=== PATIENT | male | born 1980 | race Caucasian/White ===

== ENCOUNTER 2016-12-13 10:25 | Emergency (ER) | payer SELFPAY ==
[~2016-12-13] VITALS: Ht 177.8 cm; Wt 127.0 kg
[~2016-12-13 10:25] MED LIST: PRIL40CA PO; ZOFR4TAB3 SL
[2016-12-13 10:37] VITALS: BP 140/86; PULSE 60; RESP 12; TEMP 98.1; O2SAT 96
--- NOTE | 2016-12-13 11:50 | PD ---
HPI Chief Complaint: Fall Time Seen by Provider: 11:30 Travel History International Travel<30 days: No Contact w/Intl Traveler<30days: No Traveled to known affect area: No History of Present Illness HPI Patient is a 36-year-old male presenting to the emergency department for evaluation of visual changes, right shoulder pain, right elbow pain, right knee pain, shortness of breath. Patient fell approximately 8 feet off of his roof at 6:30 this morning, he was on his roof checking for leak. He states that his vision is off, he states things look white. He felt something in his knee pop and feels as if the patella is displaced. Patient was ambulatory emergency department. He reports his pain as a 7/10. He denies hitting his head but has left facial pain. He denies any significant past medical history. PFSH Past Medical History Medical History: Denies Significant Hx High Cholesterol: No Diminished Hearing: No Endocrine: No Genitourinary: No Immune Disorder: No Musculoskeletal: No Neurologic: No Psychiatric: No Reproductive: No Respiratory: No Immunizations Current: Yes Tetanus Vaccination: < 5 Years Influenza Vaccination: No Past Surgical History Surgical History: No Previous Surgery Other Surgery: No Family History Family History: Negative Social History Alcohol Use: No Tobacco Use: No Substance Use: No Allergies-Medications (Allergen,Severity, Reaction): Coded Allergies: Canned Fish (Verified Allergy, Severe, severe swelling and rash, 12/13/16) Penicillin (Verified Allergy, Severe, swelling, 12/13/16) Reported Meds & Prescriptions Reported Meds & Active Scripts Active Tramadol (Tramadol HCl) 50 Mg Tab 50 Mg PO Q6H PRN Flexeril (Cyclobenzaprine HCl) 10 Mg Tab 10 Mg PO TID PRN 10 Days Ibuprofen 800 Mg Tab 800 Mg PO Q8H PRN 10 Days Review of Systems Except as stated in HPI: all other systems reviewed are Neg Eyes: Positive: Visual changes HENT: Positive: Headaches, Lightheadedness Cardiovascular: No: Chest Pain or Discomfort Respiratory: Positive: Shortness of Breath, Pleuritic Pain Gastrointestinal: No: Nausea, Abdominal Pain Musculoskeletal: Positive: Myalgias, Arthralgias, Limited ROM, Pain Neurologic: Positive: Dizziness, Headache, No: Focal Abnormalities, Change in Mentation, Sensory Disturbance Physical Exam Narrative GENERAL: Developed, well-nourished, alert male. Resting comfortably in no acute distress. SKIN: Warm and dry. HEAD: Atraumatic. Normocephalic. EYES: Pupils equal and round. No scleral icterus. No injection or drainage. Extraocular movements are intact. ENT: No nasal bleeding or discharge. Mucous membranes pink and moist. NECK: Trachea midline. No JVD. CARDIOVASCULAR: Regular rate and rhythm. No murmur appreciated. RESPIRATORY: No accessory muscle use. Clear to auscultation. Breath sounds equal bilaterally, diminished breath sounds secondary to poor inspiratory effort. GASTROINTESTINAL: Abdomen soft, non-tender, nondistended. Hepatic and splenic margins not palpable. MUSCULOSKELETAL: No obvious deformities. No clubbing. No cyanosis. Mild edema noted to right knee anteriorly. Decreased range of motion with flexion and extension. NEUROLOGICAL: Awake and alert. No obvious cranial nerve deficits. Motor grossly within normal limits. Normal speech. PSYCHIATRIC: Appropriate mood and affect; insight and judgment normal. Data Data Last Documented VS Vital Signs Date Time Temp Pulse Resp B/P Pulse Ox O2 Delivery O2 Flow Rate FiO2 12/13/16 10:37 98.1 60 12 140/[address] Brain W/O Iv Contrast(Rout) (12/13/16 ) Ct Cerv Spine W/O Contrast (12/13/16 ) Ct Thorax/ Chest W Iv Contrast (12/13/16 ) Ct Abd/Pel W Iv Contrast(Rout) (12/13/16 ) Ct Thor Spine W/O Contrast (12/13/16 ) Ct Lumb Spine W/O Contrast (12/13/16 ) Knee, Complete (4vws) (12/13/16 ) Elbow, Complete (4 Vws) (12/13/16 ) Complete Blood Count With Diff (12/13/16 11:21) Basic Metabolic Panel (Bmp) (12/13/16 11:21) Act Partial Throm Time (Ptt) (12/13/16 11:21) Prothrombin Time / Inr (Pt) (12/13/16 11:21) Iv Access Insert/Monitor (12/13/16 11:21) Shoulder, Complete (>2vws) (12/13/16 ) Iohexol 350 Inj (Omnipaque 350 Inj) (12/13/16 12:53) Crutches (12/13/16 13:34) Support Splint (12/13/16 13:34) Mandatory Outpatient Referral (12/13/16 13:56) Mandatory Outpatient Referral (12/13/16 13:56) Labs Laboratory Tests Test 12/13/16 11:30 White Blood Count 8.4 TH/MM3 Red Blood Count 4.58 MIL/MM3 Hemoglobin 14.2 GM/DL Hematocrit 41.5 % Mean Corpuscular Volume 90.6 FL Mean Corpuscular Hemoglobin 31.0 PG Mean Corpuscular Hemoglobin 34.2 % Concent Red Cell Distribution Width 11.8 % Platelet Count 247 TH/MM3 Mean Platelet Volume 7.6 FL Neutrophils (%) (Auto) 63.8 % Lymphocytes (%) (Auto) 24.0 % Monocytes (%) (Auto) 10.2 % Eosinophils (%) (Auto) 1.4 % Basophils (%) (Auto) 0.6 % Neutrophils # (Auto) 5.3 TH/MM3 Lymphocytes # (Auto) 2.0 TH/MM3 Monocytes # (Auto) 0.9 TH/MM3 Eosinophils # (Auto) 0.1 TH/MM3 Basophils # (Auto) 0.1 TH/MM3 CBC Comment DIFF FINAL Differential Comment Prothrombin Time 11.0 SEC Prothromb Time International 1.0 RATIO Ratio Activated Partial 25.5 SEC Thromboplast Time Sodium Level 143 MEQ/L Potassium Level 4.1 MEQ/L Chloride Level 109 MEQ/L Carbon Dioxide Level 27.1 MEQ/L Anion Gap 7 MEQ/L Blood Urea Nitrogen 11 MG/DL Creatinine 0.80 MG/DL Estimat Glomerular Filtration 108 ML/MIN Rate Random Glucose 74 MG/DL Calcium Level 8.8 MG/DL MDM Medical Decision Making Medical Screen Exam Complete: Yes Emergency Medical Condition: Yes Interpretation(s) Last Impressions Thoracic Spine CT 12/13/16 0000 Signed Impressions: Service Date/Time: Tuesday, December 13, 2016 12:22 - CONCLUSION: 1. No acute bony fracture. 2. Primary bony degenerative changes, disc degeneration and disc space narrowing throughout the thoracic spine. 3. Tiny left paracentral disc osteophyte complex at T8-9. Santosh Rose MD Shoulder X-Ray 12/13/16 0000 Signed Impressions: Service Date/Time: Tuesday, December 13, 2016 11:50 - CONCLUSION: Unremarkable exam. Satnosh Rose MD Lumbar Spine CT 12/13/16 0000 Signed Impressions: Service Date/Time: Tuesday, December 13, 2016 12:22 - CONCLUSION: 1. No acute bony fracture. 2. Mild primary degenerative changes. 3. Bilateral facet arthritis at L5-S1. Santosh Rose MD Knee X-Ray 12/13/16 0000 Signed Impressions: Service Date/Time: Tuesday, December 13, 2016 11:52 - CONCLUSION: Negative for fracture or dislocation. Follow up in 7-10 days is suggested if symptoms persist.. Jaret Waldrop MD FACR Head CT 12/13/16 0000 Signed Impressions: Service Date/Time: Tuesday, December 13, 2016 12:12 - CONCLUSION: Negative for an acute process. Jaret Waldrop MD FACR Elbow X-Ray 12/13/16 0000 Signed Impressions: Service Date/Time: Tuesday, December 13, 2016 11:46 - CONCLUSION: Normal examination for a patient of this age. Santosh Rose MD Chest CT 12/13/16 0000 Signed Impressions: Service Date/Time: Tuesday, December 13, 2016 12:22 - CONCLUSION: Negative for an acute process. Jaret Waldrop MD FACR Cervical Spine CT 12/13/16 0000 Signed Impressions: Service Date/Time: Tuesday, December 13, 2016 12:12 - CONCLUSION: Negative for acute traumatic injury. Jaret Waldrop MD FACR Abdomen/Pelvis CT 12/13/16 0000 Signed Impressions: Service Date/Time: Tuesday, December 13, 2016 12:22 - CONCLUSION: Unremarkable and stable CT scan of the abdomen and pelvis compared to the prior exam. Santosh Rose MD Vital Signs Date Time Temp Pulse Resp B/P Pulse Ox O2 Delivery O2 Flow Rate FiO2 12/13/16 10:37 98.1 60 12 140/86 96 Differential Diagnosis Hemorrhage versus fracture versus contusion versus sprain versus strain versus pneumothorax versus hemothorax versus other Narrative Course Patient is a 36-year-old male with no significant past medical history per his report. Presenting to the emergency department after a fall from approximately 8 feet this morning. He is neurologically intact at this time. He is reporting visual changes, but denies any head injury. Patient's vital signs are stable. Imaging, labs ordered and pending. IV access initiated. X-ray of the right knee is negative for acute fracture, follow-up in 7-10 days is recommended if symptoms persist. X-ray of the right elbow was negative for acute fracture. CBC, chemistry, coags reviewed and are unremarkable. X-ray of the right shoulder is negative for acute fracture or dislocation. CT scan of the brain, cervical spine, chest, thoracic spine, lumbar spine, abdomen and pelvis negative for acute fractures, abnormalities or hemorrhage. CT scan of the thoracic spine shows degenerative changes and disc narrowing throughout the thoracic spine, tiny left paracentral disc osteophyte complex at T8 to 9. Patient will be placed in knee immobilizer and given crutches. Discussed visual field changes with my attending physician who is independently evaluating patient. Dr. Frey performed bedside ultrasound of the left eye. No acute abnormalities noted on exam. A mandatory referral will be made to ophthalmology for outpatient follow-up. A mandatory referral will be made to orthopedic surgery for right knee pain. Patient was advised that he will be sore, he was encouraged to continue range of motion exercises, avoid extensive bed rest. He was encouraged to avoid activities that could exacerbate pain. Patient was advised that he'll be given prescriptions to help alleviate his pain at home. He was encouraged to follow- up in 7-10 days if the knee pain persisted per radiologist's recommendation. Patient verbalized understanding of these instructions. Patient is stable for discharge. Visual acuity was assessed at 20/25 bilaterally. Patient does wear corrective lenses. Diagnosis Primary Impression: Fall through roof as cause of accidental injury Additional Impressions: Shoulder pain Qualified Code: M25.511 - Acute pain of right shoulder Knee pain Qualified Code: M25.561 - Acute pain of right knee Elbow pain Qualified Code: M25.521 - Right elbow pain Muscle spasm Vision changes Referrals: Primary Care Physician Patient Instructions: General Instructions, Knee Exercises (GEN), Knee Pain (ED ), Shoulder Pain (ED) Additional Instructions: Follow-up with a primary doctor Return to emergency department immediately for any new or worsening symptoms Take medications as directed Do not drive or operate heavy machinery while taking her cardiac pain medication Alternate heat and ice to the affected areas, continue range of motion exercises , avoid bed rest, avoid exacerbating activities Med/Other Pt SpecificInfo: Prescription(s) given Scripts Tramadol 50 Mg Tab50 Mg PO Q6H PRN (PAIN) #12 TAB Ref 0 Prov:Sofía Frey MD 12/13/16 Cyclobenzaprine (Flexeril)10 Mg Tab10 Mg PO TID PRN (MUSCLE SPASM) 10 Days Ref 0 Prov:Madalyn Briceno 12/13/16 Ibuprofen 800 Mg Xqs394 Mg PO Q8H PRN (Pain/Inflammation) 10 Days Ref 0 Prov:Madalyn Briceno 12/13/16 Disposition: 01 DISCHARGE HOME Condition: Stable Madalyn Briceno Dec 13, 2016 11:49
[2016-12-13 11:51] LABS: AUTOMATED NEUTROPHIL # 5.3 TH/MM3 (1.8-7.7); BASOPHIL # 0.1 TH/MM3 (0-0.2); BASOPHIL % 0.6 % (0.0-2.0); EOSINOPHIL # 0.1 TH/MM3 (0-0.4); EOSINOPHIL % 1.4 % (0.0-4.0); HEMATOCRIT 41.5 % (39.0-51.0); HEMO FLAGS DIFF FINAL; MEAN CELL VOLUME 90.6 FL (80.0-100.0); MEAN CORPUSCULAR HGB CONC 34.2 % (32.0-36.0); MONO % 10.2 % (0.0-8.0); NEUT % 63.8 % (16.0-70.0); PLATELET COUNT 247 TH/MM3 (150-450); RED BLOOD COUNT 4.58 MIL/MM3 (4.50-5.90); RED CELL DISTRIBUTION WIDTH 11.8 % (11.6-17.2); WHITE BLOOD COUNT 8.4 TH/MM3 (4.0-11.0)
[2016-12-13 11:57] LABS: POTASSIUM 4.1 MEQ/L (3.5-5.1)
--- NOTE | 2016-12-13 11:58 | RADHPO ---
EXAM DATE/TIME: 12/13/2016 11:46 [facility] COMPARISON: No previous studies available for comparison. INDICATIONS : Right elbow pain post fall from roof. MEDICAL HISTORY : None. SURGICAL HISTORY : None. ENCOUNTER: Initial ACUITY: 1 day PAIN SCORE: 10/10 LOCATION: Right elbow FINDINGS: Multiple view examination of the right elbow demonstrates no soft tissue swelling, joint effusion, or fracture. The osseous structures are in normal alignment. Bony mineralization is normal. CONCLUSION: Normal examination for a patient of this age. Santosh Rose MD on December 13, 2016 at 11:56 Board Certified Radiologist. This report was verified electronically.
[2016-12-13 12:00] LABS: BICARBONATE 27.1 MEQ/L (21.0-32.0)
[2016-12-13 12:02] LABS: APTT (PATIENT) 25.5 SEC (24.3-30.1)
--- NOTE | 2016-12-13 12:06 | RADHPO ---
EXAM DATE/TIME: 12/13/2016 11:52 [facility] COMPARISON: No previous studies available for comparison. INDICATIONS : Right knee pain post fall from roof. MEDICAL HISTORY : None. SURGICAL HISTORY : None. ENCOUNTER: Initial ACUITY: 1 day PAIN SCORE: 9/10 LOCATION: Right knee. FINDINGS: Four view examination of the right knee demonstrates no evidence of fracture or dislocation. Bony mi neralization is normal. The articular surfaces are intact. The suprapatellar soft tissues have a no rmal configuration. CONCLUSION: Negative for fracture or dislocation. Follow up in 7-10 days is suggested if symptoms persist.. Jaret Waldrop MD FACR on December 13, 2016 at 12:03 Board Certified Radiologist. This report was verified electronically.
--- NOTE | 2016-12-13 12:11 | RADHPO ---
EXAM DATE/TIME: 12/13/2016 11:50 [facility] COMPARISON: No previous studies available for comparison. INDICATIONS : Right shoulder pain post fall from roof. MEDICAL HISTORY : None. SURGICAL HISTORY : None. ENCOUNTER: Initial ACUITY: 1 day PAIN SCORE: 10/10 LOCATION: Right shoulder FINDINGS: Multiple view examination of the right shoulder demonstrates no evidence of fracture or dislocation. The glenohumeral and acromioclavicular joints are maintained. There is normal range of motion betwe en internal and external rotation. Bony mineralization is normal. CONCLUSION: Unremarkable exam. Santosh Rose MD on December 13, 2016 at 12:09 Board Certified Radiologist. This report was verified electronically.
[2016-12-13] MEDS ORDERED: IOHEXOL 350 MG/ML 10 ML VIAL (for RAD DIAG) IV ONE (12:53)
--- NOTE | 2016-12-13 13:06 | RADHPO ---
EXAM DATE/TIME: 12/13/2016 12:22 [facility] COMPARISON: CT ABDOMEN & PELVIS W CONTRAST, December 13, 2015, 12:19. INDICATIONS : Fall off roof today; generalized pain. IV CONTRAST: 95 cc Omnipaque 350 (iohexol) IV ; Cumulative dose for multiple exams. ORAL CONTRAST: No oral contrast ingested. RADIATION DOSE: 17.56 CTDIvol (mGy) ; Combined studies - Thorax/Abdomen/Pelvis MEDICAL HISTORY : None SURGICAL HISTORY : None. ENCOUNTER: Initial ACUITY: 1 day PAIN SCALE: 4/10 LOCATION: Abdomen/pelvis TECHNIQUE: Volumetric scanning of the abdomen and pelvis was performed. Using automated exposure control and ad justment of the mA and/or kV according to patient size, radiation dose was kept as low as reasonably achievable to obtain optimal diagnostic quality images. FINDINGS: LOWER LUNGS: The visualized lower lungs are clear. LIVER: Homogeneous density without lesion. There is some fatty infiltration of the liver. There is no dilat ion of the biliary tree. No calcified gallstones. No significant change compared to the prior study. SPLEEN: Normal size without lesion. PANCREAS: Within normal limits. KIDNEYS: Normal in size and shape. There is no mass, stone or hydronephrosis. There is stable cortical scarri ng along the lower pole the right kidney. ADRENAL GLANDS: Within normal limits. VASCULAR: There is no aortic aneurysm. BOWEL/MESENTERY: The stomach, small bowel, and colon demonstrate no acute abnormality. There is no free intraperitone al air or fluid. ABDOMINAL WALL: Within normal limits. RETROPERITONEUM: There is no lymphadenopathy. BLADDER: No wall thickening or mass. REPRODUCTIVE: Within normal limits. INGUINAL: There is no lymphadenopathy or hernia. MUSCULOSKELETAL: Within normal limits for patient age. No acute bony fractures. CONCLUSION: Unremarkable and stable CT scan of the abdomen and pelvis compared to the prior exam. Santosh Rose MD on December 13, 2016 at 13:01 Board Certified Radiologist. This report was verified electronically.
--- NOTE | 2016-12-13 13:07 | RADHPO ---
EXAM DATE/TIME: 12/13/2016 12:12 [facility] COMPARISON: No previous studies available for comparison. INDICATIONS : Fall off roof today; generalized pain. RADIATION DOSE: 57.00 CTDIvol (mGy) MEDICAL HISTORY : None SURGICAL HISTORY : None. ENCOUNTER: Initial ACUITY: 1 day PAIN SCALE: 5/10 LOCATION: cranial TECHNIQUE: Multiple contiguous axial images were obtained of the head. Using automated exposure control and adjustment of the mA and/or kV according to patient size, radiation dose was kept as low as reasonably achievable to obtain optimal diagnostic quality images. FINDINGS: CEREBRUM: The ventricles are normal for age. No evidence of midline shift, mass lesion, hemorrha ge or acute infarction. No extra-axial fluid collections are seen. POSTERIOR FOSSA: The cerebellum and brainstem are intact. The 4th ventricle is midline. The cer ebellopontine angle is unremarkable. EXTRACRANIAL: The visualized portion of the orbits is intact. SKULL: The calvaria is intact. No evidence of skull fracture. CONCLUSION: Negative for an acute process. Jaret Waldrop MD FACR on December 13, 2016 at 13:04 Board Certified Radiologist. This report was verified electronically.
--- NOTE | 2016-12-13 13:08 | RADHPO ---
EXAM DATE/TIME: 12/13/2016 12:12 [facility] COMPARISON: No previous studies available for comparison. INDICATIONS : Fall off roof today; generalized pain. RADIATION DOSE: 31.95 CTDIvol (mGy) MEDICAL HISTORY : None SURGICAL HISTORY : None. ENCOUNTER: Initial ACUITY: 1 day PAIN SCALE: 3/10 LOCATION: neck TECHNIQUE: Volumetric scanning of the cervical spine was performed. Multiplanar reconstructions i n the sagittal, coronal and oblique axial planes were performed. Using automated exposure control a nd adjustment of the mA and/or kV according to patient size, radiation dose was kept as low as reason ably achievable to obtain optimal diagnostic quality images. FINDINGS: VERTEBRAE: Normal vertebral body height. ALIGNMENT: No evidence of subluxation. C2-C3: The bony spinal canal is normal in size. No evidence of disc bulge or herniation. The neura l foramina are bilaterally patent. C3-C4: The bony spinal canal is normal in size. No evidence of disc bulge or herniation. The neura l foramina are bilaterally patent. C4-C5: The bony spinal canal is normal in size. No evidence of disc bulge or herniation. The neura l foramina are bilaterally patent. C5-C6: The bony spinal canal is normal in size. No evidence of disc bulge or herniation. The neura l foramina are bilaterally patent. C6-C7: The bony spinal canal is normal in size. No evidence of disc bulge or herniation. The neura l foramina are bilaterally patent. C7-T1: The bony spinal canal is normal in size. No evidence of disc bulge or herniation. The neura l foramina are bilaterally patent. CONCLUSION: Negative for acute traumatic injury. Jaret Waldrop MD FACR on December 13, 2016 at 13:05 Board Certified Radiologist. This report was verified electronically.
--- NOTE | 2016-12-13 13:08 | RADHPO ---
EXAM DATE/TIME: 12/13/2016 12:22 [facility] COMPARISON: No previous studies available for comparison. INDICATIONS : Fall off roof today; generalized pain. RADIATION DOSE: CTDIvol (mGy) ; Reconstructed from previous dataset MEDICAL HISTORY : None SURGICAL HISTORY : None. ENCOUNTER: Initial ACUITY: 1 day PAIN SCALE: 6/10 LOCATION: Lower back TECHNIQUE: Volumetric scanning of the lumbar spine was performed. Multiplanar reconstructions in the sagittal, coronal and oblique axial planes were performed. Using automated exposure control and adjustment of the mA and/or kV according to patient size, radiation dose was kept as low as reasonably achievable t o obtain optimal diagnostic quality images. FINDINGS: VERTEBRAE: Normal vertebral body height. Mild primary bony degenerative changes. No acute bony fracture. ALIGNMENT: No evidence of subluxation. T12-L1: The thecal sac has a normal diameter. No evidence of disc bulge or protrusion. The neural foramina are patent bilaterally. L1-L2: The thecal sac has a normal diameter. No evidence of disc bulge or protrusion. The neural foramina are patent bilaterally. L2-L3: The thecal sac has a normal diameter. No evidence of disc bulge or protrusion. The neural foramina are patent bilaterally. L3-L4: The thecal sac has a normal diameter. No evidence of disc bulge or protrusion. The neural foramina are patent bilaterally. L4-L5: The thecal sac has a normal diameter. No evidence of disc bulge or protrusion. The neural foramina are patent bilaterally. L5-S1: The thecal sac has a normal diameter. No evidence of disc bulge or protrusion. The neural foramina are patent bilaterally. Bilateral facet arthritis. CONCLUSION: 1. No acute bony fracture. 2. Mild primary degenerative changes. 3. Bilateral facet arthritis at L5-S1. Santosh Rose MD on December 13, 2016 at 13:04 Board Certified Radiologist. This report was verified electronically.
--- NOTE | 2016-12-13 13:11 | RADHPO ---
EXAM DATE/TIME: 12/13/2016 12:22 [facility] COMPARISON: No previous studies available for comparison. INDICATIONS : Fall off roof today; generalized pain. RADIATION DOSE: CTDIvol (mGy) ; Reconstructed from previous dataset MEDICAL HISTORY : None SURGICAL HISTORY : None. ENCOUNTER: Initial ACUITY: 1 day PAIN SCALE: 4/10 LOCATION: Middle back TECHNIQUE: Volumetric scanning of the thoracic spine was performed. Multiplanar reconstructions in the sagittal , coronal and oblique axial planes were performed. Using automated exposure control and adjustment o f the mA and/or kV according to patient size, radiation dose was kept as low as reasonably achievable to obtain optimal diagnostic quality images. FINDINGS: The vertebral bodies of the thoracic spine are in normal alignment without evidence of subluxation. Vertebral body height is maintained. No fractures are seen. There are primary bony degenerative hu ges, disc degeneration and disc space narrowing throughout the thoracic spine. T1-T2: Normal. T2-T3: The thecal sac has a normal diameter. No evidence of disc bulge or protrusion. T3-T4: The thecal sac has a normal diameter. No evidence of disc bulge or protrusion. T4-T5: The thecal sac has a normal diameter. No evidence of disc bulge or protrusion. T5-T6: The thecal sac has a normal diameter. No evidence of disc bulge or protrusion. T6-T7: The thecal sac has a normal diameter. No evidence of disc bulge or protrusion. T7-T8: The thecal sac has a normal diameter. No evidence of disc bulge or protrusion. T8-T9: Tiny left paracentral disc osteophyte complex. T9-T10: The thecal sac has a normal diameter. No evidence of disc bulge or protrusion. T10-T11: The thecal sac has a normal diameter. No evidence of disc bulge or protrusion. T11-T12: The thecal sac has a normal diameter. No evidence of disc bulge or protrusion. T12-L1: The thecal sac has a normal diameter. No evidence of disc bulge or protrusion. CONCLUSION: 1. No acute bony fracture. 2. Primary bony degenerative changes, disc degeneration and disc space narrowing throughout the thora cic spine. 3. Tiny left paracentral disc osteophyte complex at T8-9. Santosh Rose MD on December 13, 2016 at 13:06 Board Certified Radiologist. This report was verified electronically.
--- NOTE | 2016-12-13 13:12 | RADHPO ---
EXAM DATE/TIME: 12/13/2016 12:22 [facility] COMPARISON: No previous studies available for comparison. INDICATIONS : Fall off roof today; generalized pain. IV CONTRAST: 95 cc Omnipaque 350 (iohexol) IV ; Cumulative dose for multiple exams. RADIATION DOSE: 17.56 CTDIvol (mGy) ; Combined studies - Thorax/Abdomen/Pelvis MEDICAL HISTORY : None SURGICAL HISTORY : None. ENCOUNTER: Initial ACUITY: 1 day PAIN SCALE: 6/10 LOCATION: chest TECHNIQUE: Volumetric scanning of the chest was performed. Using automated exposure control and adjustment of the mA and/or kV according to patient size, radiation dose was kept as low as reasonab ly achievable to obtain optimal diagnostic quality images. FINDINGS: LUNGS: There is no consolidation or pneumothorax. No concerning pulmonary nodule is visualized. PLEURA: There is no pleural thickening or pleural effusion. MEDIASTINUM: The heart and great vessels demonstrate no acute abnormality. There is no mediastin al or hilar lymphadenopathy. AXILLAE: Within normal limits. No lymphadenopathy. SKELETAL: Within normal limits for patient age. MISCELLANEOUS: The visualized upper abdominal organs demonstrate no acute abnormality. CONCLUSION: Negative for an acute process. Jaret Waldrop MD FACR on December 13, 2016 at 13:06 Board Certified Radiologist. This report was verified electronically.
[2016-12-13] MEDS ORDERED: IBUP800T23 PO (13:30)
[2016-12-13] MEDS ORDERED: CYCL1TAB29 PO (13:30)
[2016-12-13] MEDS ORDERED: TRAM50TA PO (13:30)
--- NOTE | 2016-12-13 13:54 | PD ---
Physical Exam Date Seen by Provider: Dec 13, 2016 Time Seen by Provider: 13:00 Narrative 36-year-old male came to the emergency room after sustaining a fall from the roof from 8 feet height. This happened this morning. Patient says that this was his own house and he was up on the checking for something when he lost balance and fell. Fell on mud. He got up and walked around but then had some right knee pain and came in to be checked in. The nurse practitioner saw him initially and evaluated him. She ordered CAT scans and x-rays. The CAT scan results are back and looking normal. Patient however was also complaining of left sided peripheral visual issues. I examined the patient and he seems quite anxious. There was no external appearance of any obvious injury or deformities. I did a bedside ultrasound of his orbit to look for any retinal detachment. The ultrasound was negative for any retinal detachment. Patient tolerated the procedure well. Gross external exam of the eye seen normal as well pupils were round and equally reactive to light. No scleral injection. I tried calling the newspaper columnist Dr. Tony and left a message. I've asked the nurse practitioner to have the patient follow up with her. He was also complaining of his right knee hurting. I examined the knee and there is no swelling. The x-ray was within normal limits. He is going to get a knee brace/ knee immobilizer. Patient will be discharged home. Data Data Last Documented VS Orders Ct Brain W/O Iv Contrast(Rout) (12/13/16 ) Ct Cerv Spine W/O Contrast (12/13/16 ) Ct Thorax/ Chest W Iv Contrast (12/13/16 ) Ct Abd/Pel W Iv Contrast(Rout) (12/13/16 ) Ct Thor Spine W/O Contrast (12/13/16 ) Ct Lumb Spine W/O Contrast (12/13/16 ) Knee, Complete (4vws) (12/13/16 ) Elbow, Complete (4 Vws) (12/13/16 ) Complete Blood Count With Diff (12/13/16 11:21) Basic Metabolic Panel (Bmp) (12/13/16 11:21) Act Partial Throm Time (Ptt) (12/13/16 11:21) Prothrombin Time / Inr (Pt) (12/13/16 11:21) Iv Access Insert/Monitor (12/13/16 11:21) Shoulder, Complete (>2vws) (12/13/16 ) Iohexol 350 Inj (Omnipaque 350 Inj) (12/13/16 12:53) Crutches (12/13/16 13:34) Support Splint (12/13/16 13:34) Mandatory Outpatient Referral (12/13/16 13:56) Mandatory Outpatient Referral (12/13/16 13:56) Immobilizer Knee 20 Inch (12/13/16 ) Labs MDM Supervised Visit with HELENA: Yes Diagnosis Primary Impression: Fall through roof as cause of accidental injury Additional Impressions: Muscle spasm Shoulder pain Qualified Code: M25.511 - Acute pain of right shoulder Elbow pain Qualified Code: M25.521 - Right elbow pain Knee pain Qualified Code: M25.561 - Acute pain of right knee Referrals: Primary Care Physician Patient Instructions: General Instructions, Knee Pain (ED), Knee Exercises (GEN ), Shoulder Pain (ED) Additional Instruction: Follow-up with a primary doctor Return to emergency department immediately for any new or worsening symptoms Take medications as directed Do not drive or operate heavy machinery while taking her cardiac pain medication Alternate heat and ice to the affected areas, continue range of motion exercises , avoid bed rest, avoid exacerbating activities Scripts Tramadol 50 Mg Tab50 Mg PO Q6H PRN (PAIN) #12 TAB Ref 0 Prov:Sofía Frey MD 12/13/16 Cyclobenzaprine (Flexeril)10 Mg Tab10 Mg PO TID PRN (MUSCLE SPASM) 10 Days Ref 0 Prov:Madalyn Briceno 12/13/16 Ibuprofen 800 Mg [id number] Mg PO Q8H PRN (Pain/Inflammation) 10 Days Ref 0 Prov:Madalyn Briceno 12/13/16 Disposition: 01 DISCHARGE HOME Condition: Stable Sofía Frey MD Dec 13, 2016 13:54 Eosinophils (%) (Auto) 1.4 % Basophils (%) (Auto) 0.6 % Neutrophils # (Auto) 5.3 TH/MM3 Lymphocytes # (Auto) 2.0 TH/MM3 Monocytes # (Auto) 0.9 TH/MM3 Eosinophils # (Auto) 0.1 TH/MM3 Basophils # (Auto) 0.1 TH/MM3 CBC Comment DIFF FINAL Differential Comment Prothrombin Time 11.0 SEC Prothromb Time International 1.0 RATIO Ratio Activated Partial 25.5 SEC Thromboplast Time Sodium Level 143 MEQ/L Potassium Level 4.1 MEQ/L Chloride Level 109 MEQ/L Carbon Dioxide Level 27.1 MEQ/L Anion Gap 7 MEQ/L Blood Urea Nitrogen 11 MG/DL Creatinine 0.80 MG/DL Estimat Glomerular Filtration 108 ML/MIN Rate Random Glucose 74 MG/DL Calcium Level 8.8 MG/DL MDM Supervised Visit with HELENA: Yes Diagnosis Primary Impression: Fall through roof as cause of accidental injury Additional Impressions: Muscle spasm Shoulder pain Qualified Code: M25.511 - Acute pain of right shoulder Elbow pain Qualified Code: M25.521 - Right elbow pain Knee pain Qualified Code: M25.561 - Acute pain of right knee Referrals: Primary Care Physician Patient Instructions: General Instructions, Knee Pain (ED), Knee Exercises (GEN ), Shoulder Pain (ED) Additional Instruction: Follow-up with a primary doctor Return to emergency department immediately for any new or worsening symptoms Take medications as directed Do not drive or operate heavy machinery while taking her cardiac pain medication Alternate heat and ice to the affected areas, continue range of motion exercises , avoid bed rest, avoid exacerbating activities Scripts Tramadol 50 Mg Tab50 Mg PO Q6H PRN (PAIN) #12 TAB Ref 0 Prov:Sofía Frey MD 12/13/16 Cyclobenzaprine (Flexeril)10 Mg Tab10 Mg PO TID PRN (MUSCLE SPASM) 10 Days Ref 0 Prov:Madalyn Briceno 12/13/16 Ibuprofen 800 Mg [id number] Mg PO Q8H PRN (Pain/Inflammation) 10 Days Ref 0 Prov:Madalyn Briceno 12/13/16 Disposition: 01 DISCHARGE HOME Condition: Stable Sofía Frey MD Dec 13, 2016 13:54
== END 2016-12-13 14:25 | disposition home or self-care (01) ==
LOC: PHED 10:25 → PHEFT 14:25
DX: M25.511 Pain in right shoulder (principal); M25.561 Pain in right knee; M25.521 Pain in right elbow; M62.838 Other muscle spasm; H53.8 Other visual disturbances; R06.02 Shortness of breath; R51 Headache; W13.2XXA Fall from, out of or through roof, initial encounter; Y93.H9 Activity, other involving exterior property and land maintenance, building and construction; Y92.008 Other place in unspecified non-institutional (private) residence as the place of occurrence of the external cause
CPT/HCPCS: 70450; 71260; 72125; 72128; 72131; 73030; 73080; 73564; 74177; 80048; 85025; 85610; 85730; 99284; E0113; L1830; Q9967

== ENCOUNTER 2018-02-14 00:22 | Emergency (ER) | payer SELFPAY ==
[~2018-02-14] VITALS: Ht 177.8 cm; Wt 128.8 kg
[~2018-02-14 00:22] MED LIST changes: +CYCL10TA PO; +IBUP1TAB7 PO; -PRIL40CA PO; +TRAM50TA PO; -ZOFR4TAB3 SL
[2018-02-14 00:25] VITALS: BP 165/89; PULSE 77; TEMP 97.6; O2SAT 98
[2018-02-14 00:35] VITALS: BP 153/92; PULSE 73; RESP 16; O2SAT 97
[2018-02-14 00:36] VITALS: BP 165/89; PULSE 77; RESP 18; TEMP 97.6; O2SAT 98
[2018-02-14] MEDS ORDERED: ALEV220T14 PO (00:47)
--- NOTE | 2018-02-14 01:01 | RADRPT ---
EXAM DATE/TIME: 02/14/2018 00:42 [facility] COMPARISON: CT THORAX W CONTRAST, December 13, 2016, 12:22. INDICATIONS : Chest pain. MEDICAL HISTORY : None. SURGICAL HISTORY : None. ENCOUNTER: Initial ACUITY: 1 day PAIN SCORE: 7/10 LOCATION: Bilateral chest FINDINGS: A single view of the chest demonstrates the lungs to be symmetrically aerated without evidence of mas s, infiltrate or effusion. The cardiomediastinal contours are unremarkable. Osseous structures are intact. CONCLUSION: The lungs are clear. Lavelle Garcia MD on February 14, 2018 at 0:58 Board Certified Radiologist. This report was verified electronically.
[2018-02-14 01:36] LABS: AUTOMATED NEUTROPHIL # 4.9 TH/MM3 (1.8-7.7); BASOPHIL # 0.1 TH/MM3 (0-0.2); BASOPHIL % 0.7 % (0.0-2.0); EOSINOPHIL # 0.1 TH/MM3 (0-0.4); EOSINOPHIL % 1.8 % (0.0-4.0); HEMATOCRIT 40.8 % (39.0-51.0); HEMOGLOBIN 13.5 GM/DL (13.0-17.0); LYMPH % 33.3 % (9.0-44.0); LYMPHOCYTE # 2.8 TH/MM3 (1.0-4.8); MEAN CELL VOLUME 90.5 FL (80.0-100.0); MEAN CORPUSCULAR HGB CONC 33.2 % (32.0-36.0); MEAN PLATELET VOLUME 8.1 FL (7.0-11.0); MONO % 4.7 % (0.0-8.0); MONOCYTE # 0.4 TH/MM3 (0-0.9); NEUT % 59.5 % (16.0-70.0); PLATELET COUNT 244 TH/MM3 (150-450); RED CELL DISTRIBUTION WIDTH 11.6 % (11.6-17.2); WHITE BLOOD COUNT 8.3 TH/MM3 (4.0-11.0)
[2018-02-14] MEDS ORDERED: CYCL10TA PO (01:39)
[2018-02-14] MEDS ORDERED: IBUP1TAB7 PO (01:39)
--- NOTE | 2018-02-14 01:41 | PD ---
HPI Chief Complaint: Cold / Flu Symptoms Time Seen by Provider: 01:25 Travel History International Travel<30 days: No Contact w/Intl Traveler<30days: No Traveled to known affect area: No History of Present Illness HPI The patient is a 37-year-old male switched to the right shoulder. The pain starts in the musculature along the upper thoracic vertebra. When he turns his neck this reproduces the patient's pain. The patient has had a cough the past few days but denies any fever. He has been taking Aleve for this pain. There is no shooting pain down the arms. [facility] Past Medical History Medical History: Denies Significant Hx Cancer: No Cardiovascular Problems: Yes High Cholesterol: No Chest Pain: Yes (ADMISSION 09/12/13 R/T CP) Diminished Hearing: No Endocrine: No Gastrointestinal Disorders: No Genitourinary: No Immune Disorder: No Musculoskeletal: No Neurologic: No Psychiatric: No Reproductive: No Respiratory: No Immunizations Current: Yes Influenza Vaccination: No Past Surgical History Other Surgery: No Social History Alcohol Use: No Tobacco Use: No Substance Use: No Allergies-Medications (Allergen,Severity, Reaction): Coded Allergies: Fish Containing Products (Unverified Allergy, Severe, severe swelling and rash, 02/14/18) penicillin G (Unverified Allergy, Severe, swelling, 02/14/18) Reported Meds & Prescriptions Reported Meds & Active Scripts Active Reported Aleve Arthritis (Naproxen Sodium) 220 Mg Tab 220 Mg PO BID Review of Systems Except as stated in HPI: all other systems reviewed are Neg Physical Exam Narrative GENERAL: The patient is alert, oriented 3 in slight apparent distress with his apparent muscular pain. His vital signs show blood pressure 165/89 but are otherwise normal. SKIN: Focused skin assessment warm/dry. No skin rash is seen. HEAD: Atraumatic. Normocephalic. EYES: Pupils equal and round. No scleral icterus. No injection or drainage. ENT: No nasal bleeding or discharge. Mucous membranes pink and moist. NECK: Trachea midline. No JVD. CARDIOVASCULAR: Regular rate and rhythm. No murmur appreciated. RESPIRATORY: No accessory muscle use. Clear to auscultation. Breath sounds equal bilaterally. GASTROINTESTINAL: Abdomen soft, non-tender, nondistended. Hepatic and splenic margins not palpable. MUSCULOSKELETAL: No obvious deformities. No clubbing. No cyanosis. No edema. I can reproduce the patient's pain by pressing on the musculature around T1 through T3. At this time the pain is only reproducible by pressing to the right of the thoracic spine at this area. When the patient turns his neck he also reproduces the pain. NEUROLOGICAL: Awake and alert. No obvious cranial nerve deficits. Motor grossly within normal limits. Normal speech. PSYCHIATRIC: Appropriate mood and affect; insight and judgment normal. Data Data Last Documented VS Vital Signs Date Time Temp Pulse Resp B/P (MAP) Pulse Ox O2 Delivery O2 Flow Rate FiO2 02/14/18 00:40 18 97 Room Air 02/14/18 00:36 97.6 77 165/89 (114) Orders Orders Electrocardiogram (02/14/18:39) Complete Blood Count With Diff (02/14/18:39) Basic Metabolic Panel (Bmp) (02/14/18 00:39) Ckmb (Isoenzyme) Profile (02/14/18 00:39) Troponin I (02/14/18:39) Chest, Single Ap (02/14/18:39) Iv Access Insert/Monitor (02/14/18:39) Ecg Monitoring (02/14/18:39) Oxygen Administration (02/14/18:39) Oximetry (02/14/18 00:39) MDM Medical Decision Making Medical Screen Exam Complete: Yes Emergency Medical Condition: Yes Medical Record Reviewed: Yes Differential Diagnosis Cervical radiculopathy, muscle strain back, fasciitis Narrative Course The patient appears to have a muscle strain on the back. It is in the upper thoracic area and extends to the lower cervical area. There is no evidence of nerve impingement. Impression: Muscle strain upper back Plan: The patient is given Motrin 800 mg 3 times daily and Flexeril. He is given Norflex injection as well as Toradol injection tonight. Diagnosis Primary Impression: Acute thoracic myofascial strain Additional Instructions: The Flexeril is 1 tablet 3 times daily, it will likely make you sleepy. The ibuprofen is also 1 tablet 3 times daily taken regularly. Follow-up with your primary care physician. A heating pad may help, turned on its lowest setting and interpose a towel between your skin and the pad. Med/Other Pt SpecificInfo: Prescription(s) given Scripts Ibuprofen (Ibuprofen) 800 Mg Tab 800 MG PO TID for Arthritis Pain, #33 TAB 0 Refills Prov: John Burk MD 02/14/18 Cyclobenzaprine (Flexeril) 10 Mg Tab 10 MG PO TID for Muscle Spasm, #60 TAB 0 Refills Prov: John Burk MD 02/14/18 Disposition: 01 DISCHARGE HOME Condition: Stable John Burk MD Feb 14, 2018 01:41
[2018-02-14 01:42] LABS: CHLORIDE 107 MEQ/L (98-107); SODIUM (NA) 138 MEQ/L (136-145)
[2018-02-14 01:45] VITALS: BP 155/84; PULSE 77; RESP 16; O2SAT 95
[2018-02-14 01:45] LABS: CALCIUM 8.4 MG/DL (8.5-10.1); GLUCOSE,RANDOM 180 MG/DL (74-106)
[2018-02-14] MEDS ORDERED: KETOROLAC TROMETHAMINE 60 MG/2 ML (IM) VIAL IVP ONE (01:45)
[2018-02-14] MEDS ORDERED: ORPHENADRINE INJ 60 MG/2 ML AMP IM ONE (01:45)
[2018-02-14 01:46] LABS: BLOOD UREA NITROGEN 20 MG/DL (7-18)
[2018-02-14 01:49] LABS: CREATININE 0.92 MG/DL (0.60-1.30); GLOMERULAR FILTRATION RATE 92 ML/MIN (>89)
[2018-02-14 01:53] LABS: TROPONIN I LESS THAN 0.02 NG/ML (0.02-0.05)
--- NOTE | 2018-02-14 10:22 | EKG ---
Date Performed: 02/14/2018 Time Performed: 00:54:05 PTAGE: 37 years EKG: Sinus rhythm INDETERMINATE AXIS POOR R WAVE PROGRESSION ABNORMAL ECG PREVIOUS TRACING : 10/18/2014 16.10 Since the previous tracing, no significant change noted DOCTOR: Martin Merino Interpretating Date/Time 02/14/2018 10:20:36
== END 2018-02-14 02:40 | disposition home or self-care (01) ==
LOC: PHED 00:22
DX: S29.012A Strain of muscle and tendon of back wall of thorax, initial encounter (principal); X58.XXXA Exposure to other specified factors, initial encounter; R94.31 Abnormal electrocardiogram [ECG] [EKG]; R05 Cough
CPT/HCPCS: 71045; 80048; 82550; 82552; 84484; 85025; 93005; 96372; 96374; 99285; J1885; J2360